=== PATIENT | female | born 1995 | race Caucasian/White ===

== ENCOUNTER 2022-02-08 09:44 | Outpatient (CLI) | payer OTHER, SELFPAY ==
[2022-02-08 12:01] LABS: Hematocrit 36.9 % (37.0-47.0); Hemoglobin 12.3 g/dL (12.0-15.0)
[2022-02-08 12:11] LABS: Glucose 1 Hour 86 mg/dL
[2022-02-08 12:52] LABS: HIV 1/2 Ab P24 Ag Result Negative (Negative)
[2022-02-08] MEDS: RHO(D) IMMUNE GLOBULIN 300 MCG/2 ML SYRINGE IM (16:10)
== END 2022-02-08 09:45 | disposition home or self-care (01) ==
LOC: ANHLAB 09:50
PROVIDERS: PCP Family Medicine; Visit Provider Obstetrics & Gynecology
DX: Z36.89 Encounter for other specified antenatal screening (principal); O36.0130 Maternal care for anti-D [Rh] antibodies, third trimester, not applicable or unspecified; Z3A.00 Weeks of gestation of pregnancy not specified
CPT/HCPCS: 36415; 85014; 85018; 85461; 86703; 86850; 86900; 86901; 90384; 96372; G0432; J2790

== ENCOUNTER 2022-03-31 09:52 | Emergency (ER) | payer OTHER, SELFPAY ==
[2022-03-31 10:19] VITALS: BP 123/89; PULSE 96; RESP 18; O2SAT 99
--- NOTE | 2022-03-31 12:27 | ED.EPISTAXIS ---
HPI - Epistaxis General Chief complaint: Epistaxis Stated complaint: nose bleed for 10 minutes Time Seen by Provider: 03/31/22 10:19 Source: patient Mode of arrival: ambulatory Limitations: no limitations History of Present Illness HPI Narrative: Patient is a 26-year-old female who presents to the ED with report of epistaxis. Patient reports she had 2 brief epistaxes, mostly from her right nare yesterday. These resolved with holding pressure to nose after a few minutes. Patient developed another epistaxis today, seem to be coming from both of her nares. She states she had approximately 30 minutes of bleeding today before she decided to come to the ED. She does note she has been coughing up clots. She denies any recent cold symptoms, trauma to nose. Denies dizziness, lightheadedness, passing out. Patient is currently 8 months [address] MATCHER [address] Dr. De. Patient denies any abdominal pain, vaginal bleeding, leakage of fluid. She was started on aspirin by her MATCHER recently after being diagnosed with COVID. She is not on any other blood thinners. Related Data Allergies Allergy/AdvReac Type Severity Reaction Status Date / Time No Known Allergies Allergy Verified 03/31/22 10:22 Review of Systems Review of Systems: CONSTITUTIONAL: Denies fever, chills, or sweats. ENT: See HPI CARDIOVASCULAR: Denies chest pain, palpitations, or edema. RESPIRATORY: Denies cough or dyspnea. GASTROINTESTINAL: Denies abdominal pain, nausea, vomiting, or diarrhea. GENITOURINARY: Denies vaginal bleeding, leakage of fluid, dysuria or hematuria. NEUROLOGICAL: Denies lightheadedness/dizziness, syncope, weakness. All systems reviewed & are unremarkable except as noted in HPI and below PMFSH Past Medical History Medical History (Updated 03/31/22 @ 13:52 by Madeline Gonzalez PA-C) No pertinent past medical history Surgical History Surgical History (Updated 03/31/22 @ 13:52 by Madeline Gonzalez PA-C) No pertinent past surgical history Social History Social History (Updated 03/31/22 @ 13:53 by Madeline Gonzalez PA-C) Smoking status: Never smoker Exam Narrative: GENERAL: Well appearing, well-nourished, non-toxic, in no acute distress. HEAD: Normocephalic, atraumatic. ENT: Dried blood around bilateral nares, R>L. No signs of active bleeding to Kiesselbach plexus. No septal hematoma. Minimal blood draining down posterior pharynx. NECK: Supple. No adenopathy, no masses. RESPIRATORY: Airway patent, respirations nonlabored. Clear to auscultation bilaterally, no rales, rhonchi, wheezing. CARDIOVASCULAR: Regular rate and rhythm without murmurs, rubs, or gallops. Radial pulses 2+ and equal bilaterally. ABDOMINAL: Soft, uterus gravid, nontender, nondistended, no hepatosplenomegaly. Normoactive BS. MUSCULOSKELETAL: Moves all extremities. Strength/ROM intact without gross deformities. SKIN: Warm, dry, normal color. No rashes. NEURO: A&O X3. Speech clear. Cranial nerves II-XII grossly intact. Steady gait. No ataxic movements. PSYCHIATRIC: Appropriate mood and affect. Normal interaction. Course Vital Signs Vital signs: Vital Signs Pulse Rate 96 03/31/22 10:19 Respiratory Rate 18 03/31/22 10:19 Blood Pressure 123/89 03/31/22 10:19 Pulse Oximetry 99 03/31/22 10:19 Oxygen Delivery Room Air 03/31/22 10:19 Temperature 98 F 03/31/22 12:45 Pulse Rate 80 03/31/22 12:45 Respiratory Rate 18 03/31/22 12:45 Blood Pressure 128/87 03/31/22 12:45 Pulse Oximetry 99 03/31/22 12:45 Oxygen Delivery Room Air 03/31/22 10:19 MDM - Epistaxis MDM Narrative Medical decision making narrative: Patient's epistaxis resolved with nasal clamping in the ED. Likely anterior epistaxis, patient coughing up some clots, but appears to be draining from nose. No significant or profuse bleeding down pharynx to suggest posterior bleed. Vitals have remained stable. I did contact [facility] and spoke with Dr. Quarles
[2022-03-31 12:45] VITALS: BP 128/87; PULSE 80; RESP 18; TEMP 36.6; O2SAT 99
== END 2022-03-31 12:50 | disposition home or self-care (01) ==
PROVIDERS: Emergency Provider Physician Assistant; PCP Family Medicine
DX: R04.0 Epistaxis (principal)
CPT/HCPCS: 99283

== ENCOUNTER 2022-05-03 16:50 | Inpatient (IN) | payer OTHER, SELFPAY ==
[2022-05-03] VITALS (88 sets, daily range): BP systolic 89–148; BP diastolic 63–97; PULSE 64–197; RESP 14–16; TEMP 36.3–37.2; O2SAT 94–100; BMI 23.4
[2022-05-03 17:38] LABS: Basophils Absolute Auto 0.1 K/mm3 (0.0-0.1); Basophils Percent Auto 0.6 % (0.2-1.2); Eosinophils Absolute Auto 0.1 K/mm3 (0-0.3); Eosinophils Percent Auto 1.1 % (0-4.4); Hematocrit 36.5 % (37.0-47.0); Immature Granulocyte Absolute 0.03 K/mm3 (0.00-0.031); Immature Granulocyte Percent A 0.3 % (0-0.5); Lymphocytes Absolute Auto 2.63 K/mm3 (0.9-3.2); Lymphocytes Percent Auto 24.8 % (18.3-44.2); Mean Corpuscular HGB Conc 32.9 g/dl (32-36); Mean Corpuscular Hemoglobin 29.6 pg (26-34); Mean Corpuscular Volume 89.9 fl (80-100); Mean Platelet Volume 12.8 fl (7.4-10.4); Monocytes Absolute Auto 0.7 K/mm3 (0.1-0.6); Monocytes Percent Auto 6.6 % (2.6-8.5); Neutrophils Absolute Auto 7.1 K/mm3 (1.3-6.7); Neutrophils Percent Auto 66.6 % (45.5-73.1); Platelet Count Result 201 k/mm3 (150-375); Red Blood Count 4.06 M/mm3 (4.2-5.4); Red Cell Distribution Width 13.4 % (11.5-14.5); White Blood Count 10.6 K/mm3 (4.5-10.0)
[2022-05-03] MEDS: LACTATED RINGERS 1,000 ML 125 ML IV CONT ×2 (17:46→21:05)
[2022-05-03] MEDS: OXYTOCIN 30 UNITS/NS 500 ML 30 UNITS/500 ML BAG IV CONT (17:47)
--- NOTE | 2022-05-03 18:03 | PM.IMHP ---
H&P: HPI History of Present Illness Date/Time: 05/03/22 18:03 Chief Complaint: induction of labor Narrative: Kristin is a 26yo G1 at 40.0 for IOL. complicated by COVID, stopped taking ASA due to severe nosebleeds, and anxiety. GBS neg. Review of Systems Review of Systems: All systems reviewed & are unremarkable except as noted in HPI and below PMFSH Past Medical History Medical History (Updated 05/03/22 @ 18:04 by Kristin De MD) No pertinent past medical history Surgical History Surgical History (Updated 03/31/22 @ 13:52 by Madeline Gonzalez PA-C) No pertinent past surgical history Family History Family History (Updated 04/05/22 @ 14:31 by Tamara Gonsalez RN) Grandparent Heart attack Father Heart attack Grandparent Breast cancer Social History Social History (Updated 03/31/22 @ 13:53 by Madeline Gonzalez PA-C) Smoking status: Never smoker Substance use: former Lack of Transportation: No Lack of Food: Never True Current Housing: I Have Housing Concerned About Future Housing: No Difficulty Paying Gas/Electric Bills: No Difficulty Paying for Meds: No Currently Unemployed: No Education: Bachelor's Degree Difficulty w/ Childcare or Family Care: No Spiritual care concerns: No Meds Home Medications and Allergies Home Medications Medication Instructions Recorded Confirmed Type vits no.126-ferrous fum 1 tablet PO DAILY 04/05/22 04/05/22 History 28 mg iron-folic acid 800 mcg tablet (Classic ) Allergies Allergy/AdvReac Type Severity Reaction Status Date / Time No Known Allergies Allergy Verified 04/05/22 14:27 Vital Signs Vital Signs - 24 hr 05/03/22 17:15 05/03/22 17:30 05/03/22 17:45 Pulse Rate 94 100 91 Blood Pressure 137/88 143/90 H 133/93 H 05/03/22 18:00 Pulse Rate 87 Blood Pressure 148/97 H Exam Const: General: no acute distress Resp: Effort & Inspection: normal respiratory effort Auscultation: clear to auscultation bilaterally Cardio: Rate: regular rate Rhythm: regular rhythm GI: GI Palp: Yes Soft to palpation Extrem: General: normal to inspection H&P: Results Labs Labs: Short CBC 05/03/22 Range/Units 17:12 WBC 10.6 H (4.5-10.0) K/mm3 Hgb 12.0 (12.0-15.0) g/dL Hct 36.5 L (37.0-47.0) % Plt Count 201 (150-375) k/mm3 Assessment and Plan Assessment and plan (1) Elective induction of labor planned: Status: Acute Plan FHT category 1 GBS neg pitocin AROM clear 1.5/80/-2 BPs mildly elevated- pt anxious. If do not resolve in an hour will send PI labs. denies PreE sx.
[2022-05-03] MEDS: fentaNYL CITRATE INJ (*CRX) 100 MCG/2 ML VIAL 50 MCG IV PUSH (18:58)
[2022-05-03] MEDS: fentaNYL CITRATE INJ (*CRX) 100 MCG/2 ML VIAL IV PUSH (20:03)
--- NOTE | 2022-05-03 20:56 | WPDANESEPP ---
Anes - Eval Pre Procedure Procedure: labor epidural Date/Time: 05/03/22 20:56 Surgeon: goldy Preop Diagnosis: pain during labor Pre Op Diagnosis: Induction of Labor Patient Data Age: 26 Gender: F Height: 1.65 m Weight: 64 kg Last Vital Signs Temp 37.2 C 05/03/22 18:30 Pulse 73 05/03/22 20:45 Resp 16 05/03/22 18:30 BP 134/93 H 05/03/22 20:45 Pulse Ox 100 05/03/22 20:53 O2 Del Method Room Air 05/03/22 18:30 Allergies Allergy/AdvReac Type Severity Reaction Status Date / Time No Known Allergies Allergy Verified 04/05/22 14:27 Home Medications Medication Instructions Recorded Confirmed Type vits no.126-ferrous fum 1 tablet PO DAILY 04/05/22 04/05/22 History 28 mg iron-folic acid 800 mcg tablet (Classic ) Laboratory Tests 05/03/22 05/03/22 05/03/22 17:12 17:12 17:12 WBC 10.6 K/mm3 H K/mm3 (4.5-10.0) RBC 4.06 M/mm3 L M/mm3 (4.2-5.4) Hgb 12.0 g/dL g/dL (12.0-15.0) Hct 36.5 % L % (37.0-47.0) MCV 89.9 fl fl (80-100) MCH 29.6 pg pg (26-34) MCHC 32.9 g/dl g/dl (32-36) RDW 13.4 % % (11.5-14.5) Plt Count 201 k/mm3 k/mm3 (150-375) MPV 12.8 fl H fl (7.4-10.4) Immature Gran % (Auto) 0.3 % % (0-0.5) Neut % (Auto) 66.6 % % (45.5-73.1) Lymph % (Auto) 24.8 % % (18.3-44.2) [place] % (Auto) 6.6 % % (2.6-8.5) Eos % (Auto) 1.1 % % (0-4.4) Baso % (Auto) 0.6 % % (0.2-1.2) Lymph # (Auto) 2.63 K/mm3 K/mm3 (0.9-3.2) [place] # (Auto) 0.7 K/mm3 H K/mm3 (0.1-0.6) Eos # (Auto) 0.1 K/mm3 K/mm3 (0-0.3) Baso # (Auto) 0.1 K/mm3 K/mm3 (0.0-0.1) Abs Immat Gran (auto) 0.03 K/mm3 K/mm3 (0.00-0.031) Absolute Neuts (auto) 7.1 K/mm3 H K/mm3 (1.3-6.7) Absolute Nucleated RBC 0.0 K/mm3 K/mm3 (0.0-0.012) Nucleated RBC % 0.0 % % (0.0-0.2) RPR Pending Blood Type B Negative Antibody Screen Negative Patient hx anesthesia problems: none Family hx anesthesia problems: none Results Review: All pre-operative results and documents have been reviewed as part of the pre-operative evaluation. [facility] Past Medical History Medical History (Updated 05/03/22 @ 20:57 by Lluvia Severino CRNA) Intrauterine No pertinent past medical history Surgical History Surgical History (Updated 03/31/22 @ 13:52 by Madeline Gonzalez PA-C) No pertinent past surgical history Family History Family History (Updated 04/05/22 @ 14:31 by Tamara Gonsalez RN) Grandparent Heart attack Father Heart attack Grandparent Breast cancer Social History Social History (Updated 03/31/22 @ 13:53 by Madeline Gonzalez PA-C) Smoking status: Never smoker Substance use: former Lack of Transportation: No Lack of Food: Never True Current Housing: I Have Housing Concerned About Future Housing: No Difficulty Paying Gas/Electric Bills: No Difficulty Paying for Meds: No Currently Unemployed: No Education: Bachelor's Degree Difficulty w/ Childcare or Family Care: No Spiritual care concerns: No Exam Day of Procedure 05/03/22 20:56
[2022-05-03] MEDS: SODIUM CHLORIDE 0.9% IV 300 ML 600 ML I-UTERINE (22:30)
[2022-05-04] VITALS (50 sets, daily range): BP systolic 107–141; BP diastolic 59–94; PULSE 69–191; RESP 16–18; TEMP 36.4–37.4; O2SAT 95–100
[2022-05-04] MEDS: LACTATED RINGERS 1,000 ML 125 ML IV CONT (00:05)
--- NOTE | 2022-05-04 02:41 | PM.OBPRVD ---
OB - Delivery Note Procedure Delivery date: 05/04/22 Procedure: Events: Elective Induction of Labor Induction method: AROM and Per Pitocin Protocol Delivery monitor: External FHT and Internal Uterine Route of delivery: Laceration Description: Vaginal (left) Delivery repair: vicryl Quantitative Blood Loss (ml): 280 Anesthesia type: Epidural Disposition: Floor Narrative: With adequate expulsive efforts by the mother, the baby's head was delivered OA. The baby's anterior shoulder was delivered under the pubic symphysis without difficulty. The posterior shoulder and the rest of the baby delivered without difficulty. The was placed on the mothers chest and suctioned and stimulated. The cord was clamped and cut after 30 seconds. Mother and baby both stable. Baby Date of : 05/04/22 Time of : 02:13 Weeks of gestation at delivery: 40 Infant gender: Female Weight (pounds): 6 Weight (ounces): 1 presentation: vertex Placenta delivery description: Spontaneous Cord Vessel Description: 3 Vessels and Delayed Cord Clamping score one minute: 8 score five minutes: 9
[2022-05-04] MEDS: OXYTOCIN 30 UNITS/NS 500 ML 30 UNITS/500 ML BAG 125 UNITS IV CONT (02:57)
--- NOTE | 2022-05-04 04:51 | PC.NURSE ---
Patient transferred to post room #291 via wheel chair. Support person present. Oriented to unit, room, information board, rooming in, admission packet and security measures. Patient verbalizes understanding.
[2022-05-04 06:35] LABS: Rapid Plasma Reagin Non-Reactive (NonReactive)
[2022-05-04] MEDS: IBUPROFEN 600 MG TABLET PO ×2 (07:32→23:00)
[2022-05-04] MEDS: DOCUSATE SODIUM 100 MG CAPSULE PO (07:33)
[2022-05-05 05:12] LABS: Hematocrit 29.8 % (37.0-47.0); Hemoglobin 9.5 g/dL (12.0-15.0)
--- NOTE | 2022-05-05 07:12 | P.PNOB_ITS ---
OB - PN: Subj Subjective Date/time seen: 05/05/22 07:12 Patient comments: no complaints and pain well controlled baby status: doing well and bottle feeding well [place] feeding status: exclusively bottle feeding Narrative: would like DC home today. OB - PN: Obj Data Labs 05/05/22 03:17 Labs: Laboratory Results - last 24 hr 05/05/22 03:17 Hgb 9.5 L Hct 29.8 L OB - PN A/P Plan day: 1 Plan: routine care and discharge home Comments: DC home. DC instructions given. Time Spent With Patient Time: Total time spent is greater than 50% in coordination of care (as documented) at patient's floor/unit and/or counseling patient: Time with patient: less than 15 minutes Exam Narrative: NAD abdomen soft, nontender, fundus firm below the umbilicus Extremities nontender, 1+ edema
--- NOTE | 2022-05-05 07:14 | PM.OBDSVD ---
DS: Admitting Diagnosis Discharge Date 05/05/22 Admitting Diagnosis elective IOL at term DS: Discharge Diagnosis Discharge Diagnosis (1) , delivered: Code(s): O80 - Encounter for full-term uncomplicated delivery Status: Acute OB - DS: Summary Hospital Course Hospital Course: Kristin was admitted for elective induction of labor at 40 weeks. She proceeded to have an uncomplicated vaginal delivery and course. She was discharged home on day 1. OB Procedures : Ultrasound OB Procedures Intrapartum: Spontaneous Vag Delivery OB Procedures: : None Peripartum Data Delivery Method: Natural Vaginal complications: none Status at Discharge Functional status at discharge: independent ambulation Time Spent with Patient Time attestation: Total time spent providing and/or coordinating discharge services: Exam Narrative: NAD abdomen soft, appropriately tender Ext non tender, 1+ edema DS: Data Data Completed and Pending Labs on day of discharge: Labs from last 24 hours 05/05/22 03:17 Hgb 9.5 L Hct 29.8 L Discharge Plan Discharge Attending physician on discharge: Kristin De Discharging Clinician: Kristin De Anticipated Discharge Date/Time: 05/05/22 07:13 Patient Disposition: Home, Self-Care Activity: pelvic rest Diet: regular Patient Instructions: Antibiotic Form Stand Alone Forms: General Discharge Information Follow-up/Referrals: Kristin De MD [Physician] - 4 Weeks Discharge Medications: Continued Classic 28 mg iron- 800 mcg Tablet 1 tablet PO DAILY Date of admission: 05/03/22 16:50 Primary Care Provider: CucaAmauri Admitting Provider: Kristin De Attending physician on admission: Kristin De Condition: Stable
[2022-05-05 07:30] VITALS: BP 127/88; PULSE 73; RESP 18; TEMP 37.2; O2SAT 100
[2022-05-05] MEDS: DOCUSATE SODIUM 100 MG CAPSULE PO (08:10)
[2022-05-05] MEDS: POLYSACCHARIDE IRON COMPLEX 150 MG CAPSULE PO (08:10)
--- NOTE | 2022-05-05 10:23 | WPDANLDPN2 ---
Anes-Prog Note L&D Date/Time: 05/05/22 10:23 Comfortable throughout: labor and delivery Neuraxial method: epidural Epidural/Spinal procedure site: clean & non-tender Neuro status: Neuro function grossly intact. Cardiovascular status: normal Respiratory status: normal Airway patency: baseline Mental status: baseline Post-Op hydration status: normal Vital Signs: Last Vital Signs Temp 37.2 C 05/05/22 07:30 Pulse 73 05/05/22 07:30 Resp 18 05/05/22 07:30 BP 127/88 05/05/22 07:30 Pulse Ox 100 05/05/22 07:30 O2 Del Method Room Air 05/05/22 08:10 Pain score (VAS): 0 I/O: Intake & Output 05/04/22 05/05/22 05/05/22 23:59 07:59 15:59 Intake Total 500 Balance 500 Post-procedural complaints: none Patient feedback: Patient satisfied with anesthetic care.
--- NOTE | 2022-05-05 15:35 | PC.NURSE ---
0900 Patient viewed the discharge video Mother & Baby Care, The First Two Weeks . Patient was given the opportunity and encouraged to ask questions. Patient verbalized understanding of information shared and has been given the mother/baby guide for home reference.
[2022-05-06 10:29] VITALS: BP 125/79; PULSE 99; RESP 20; TEMP 36.4; O2SAT 99
== END 2022-05-05 14:00 | disposition home or self-care (01) | DRG 807 ==
LOC: ANHLDR 16:53 → ANHOB2 05-04 04:55
PROVIDERS: Admitting Provider Obstetrics & Gynecology; PCP Family Medicine; Visit Provider Obstetrics & Gynecology
DX: O70.0 First degree perineal laceration during delivery (principal); Z37.0 Single live birth; Z3A.40 40 weeks gestation of pregnancy; Z86.16 Personal history of COVID-19
CPT/HCPCS: 36415; 85014; 85018; 85025; 86592; 86850; 86900; 86901; A9270; J2590; J2795; J3010; J7030; J7120

== ENCOUNTER 2023-01-25 12:13 | Outpatient (CLI) | payer OTHER, SELFPAY ==
[2023-01-25 13:38] LABS: Hematocrit 37.5 % (37.0-47.0); Hemoglobin 12.2 g/dL (12.0-15.0)
[2023-01-25 13:48] LABS: Glucose 1 Hour PP 50gm Dose 90 mg/dL
[2023-01-25 14:30] LABS: HIV 1/2 Ab P24 Ag Result Negative (Negative)
[2023-01-26] MEDS: RHO(D) IMMUNE GLOBULIN 300 MCG/2 ML SYRINGE IM (15:05)
== END 2023-01-25 12:14 | disposition home or self-care (01) ==
LOC: ANHLAB 12:14
PROVIDERS: PCP Family Medicine; Visit Provider Obstetrics & Gynecology
DX: Z36.89 Encounter for other specified antenatal screening (principal); O36.0130 Maternal care for anti-D [Rh] antibodies, third trimester, not applicable or unspecified
CPT/HCPCS: 36415; 82947; 85014; 85018; 85461; 86703; 86850; 86900; 86901; 90384; 96372; G0432; J2790

== ENCOUNTER 2023-04-07 00:01 | Inpatient (IN) | payer OTHER, SELFPAY ==
[2023-04-07] VITALS (62 sets, daily range): BP systolic 66–149; BP diastolic 40–118; PULSE 70–157; RESP 16–18; TEMP 36.2–37.2; O2SAT 97–100; BMI 26.6
[2023-04-07 00:31] LABS: Basophils Absolute Auto 0.1 K/mm3 (0.0-0.1); Basophils Percent Auto 0.5 % (0.2-1.2); Eosinophils Absolute Auto 0.1 K/mm3 (0-0.3); Eosinophils Percent Auto 0.9 % (0-4.4); Hematocrit 38.7 % (37.0-47.0); Hemoglobin 12.5 g/dL (12.0-15.0); Immature Granulocyte Percent A 1.9 % (0-0.5); Lymphocytes Absolute Auto 2.23 K/mm3 (0.9-3.2); Mean Corpuscular HGB Conc 32.3 g/dl (32-36); Mean Corpuscular Hemoglobin 28.5 pg (26-34); Mean Corpuscular Volume 88.4 fl (80-100); Mean Platelet Volume 11.6 fl (7.4-10.4); Monocytes Absolute Auto 0.8 K/mm3 (0.1-0.6); Monocytes Percent Auto 7.9 % (2.6-8.5); Neutrophils Absolute Auto 7.2 K/mm3 (1.3-6.7); Neutrophils Percent Auto 67.8 % (45.5-73.1); Platelet Count Result 166 k/mm3 (150-375); Red Blood Count 4.38 M/mm3 (4.2-5.4); Red Cell Distribution Width 14.4 % (11.5-14.5); White Blood Count 10.6 K/mm3 (4.5-10.0)
[2023-04-07] MEDS: miSOPROStol 25 MCG TABLET 50 MCG PO (01:19)
--- NOTE | 2023-04-07 05:25 | WPDOBADMIT ---
Obstetrics - Admit Note Admission Note: record reviewed. No pertinent additions to the history and/or any subsequent changes in the physical findings that are not consistent with the expected course of the were found. Additions to the history and/or subsequent changes in the physical findings follow. IOL, SVE 3/80/-2 AROM moderate amount of clear, odorless fluid, anticipate vaginal delivery
[2023-04-07] MEDS: LACTATED RINGERS 1,000 ML 125 ML IV CONT (06:25)
--- NOTE | 2023-04-07 06:37 | WPDANESEPP ---
Anes - Eval Pre Procedure Procedure: labor epidural Date/Time: 04/07/23 06:37 Pre Op Diagnosis: IOL Patient Data Age: 27 Gender: F Height: 1.68 m Weight: 75 kg Last Vital Signs Temp 36.5 C 04/07/23 05:59 Pulse 94 04/07/23 06:36 BP 131/95 H 04/07/23 06:36 Pulse Ox 98 04/07/23 06:35 Allergies Allergy/AdvReac Type Severity Reaction Status Date / Time No Known Allergies Allergy Verified 04/05/22 14:27 Home Medications Medication Instructions Recorded Confirmed Type vits no.126-ferrous fum 1 tablet PO DAILY 04/05/22 04/07/23 History 28 mg iron-folic acid 800 mcg tablet (Classic ) Laboratory Tests 04/07/23 00:25 WBC 10.6 H K/mm3 (4.5-10.0) RBC 4.38 M/mm3 (4.2-5.4) Hgb 12.5 g/dL (12.0-15.0) Hct 38.7 % (37.0-47.0) MCV 88.4 fl (80-100) MCH 28.5 pg (26-34) MCHC 32.3 g/dl (32-36) RDW 14.4 % (11.5-14.5) Plt Count 166 k/mm3 (150-375) MPV 11.6 H fl (7.4-10.4) Immature Gran % (Auto) 1.9 H % (0-0.5) Neut % (Auto) 67.8 % (45.5-73.1) Lymph % (Auto) 21.0 % (18.3-44.2) [place] % (Auto) 7.9 % (2.6-8.5) Eos % (Auto) 0.9 % (0-4.4) Baso % (Auto) 0.5 % (0.2-1.2) Lymph # (Auto) 2.23 K/mm3 (0.9-3.2) [place] # (Auto) 0.8 H K/mm3 (0.1-0.6) Eos # (Auto) 0.1 K/mm3 (0-0.3) Baso # (Auto) 0.1 K/mm3 (0.0-0.1) Abs Immat Gran (auto) 0.20 H K/mm3 (0.00-0.031) Absolute Neuts (auto) 7.2 H K/mm3 (1.3-6.7) Absolute Nucleated RBC 0.0 K/mm3 (0.0-0.012) Nucleated RBC % 0.0 % (0.0-0.2) RPR Pending Blood Type B Negative Antibody Screen Positive Antibody Identification Passive Due to RH Imm Glob Antigen Identification Cancelled JUNI, IgG Interpret Not Performed JUNI, Poly Interpret Neg JUNI, Complement Interp Not Performed Patient hx anesthesia problems: none Family hx anesthesia problems: none Results Review: All pre-operative results and documents have been reviewed as part of the pre-operative evaluation. [facility] Past Medical History Medical History Intrauterine No pertinent past medical history Surgical History Surgical History No pertinent past surgical history Family History Family History Grandparent Heart attack Father Heart attack Grandparent Breast cancer Social History Social History Smoking status: Never smoker Second hand tobacco smoke exposure: No Substance use: never Do You Feel Safe in your Home?: Yes Lack of Transportation: YES Lack of Food: Never True Current Housing: I Have Housing Concerned About Future Housing: No Difficulty Paying Gas/Electric Bills: No Difficulty Paying for Meds: No Currently Unemployed: No Education: Bachelor's Degree Difficulty w/ Childcare or Family Care: No Spiritual care concerns: No Exam Day of Procedure 04/07/23 06:37 Patient weight: normal Heart: regular rate and rhythm Lungs: normal air movement Airway: Mallampati scale Neurological: alert and oriented
[2023-04-07] MEDS: LACTATED RINGERS 1,000 ML 999 ML IV CONT (06:59)
[2023-04-07] MEDS: ONDANSETRON INJ 4 MG/2 ML VIAL IV PUSH (08:12)
[2023-04-07] MEDS: OXYTOCIN 30 UNITS/NS 500 ML 30 UNITS/500 ML BAG 999 UNITS IV CONT (08:51)
--- NOTE | 2023-04-07 09:04 | P.PCNOB_ITS ---
OB - Vaginal Delivery Note Procedure Delivery date: 04/07/23 Events: Elective Induction of Labor Induction method: Per Misoprostol Protocol Delivery augmentation: Rupture of Membranes and Pitocin Delivery monitor: External FHT and External Uterine Route of delivery: Episiotomy description: None Laceration Description: Perineal - 2nd Degree Delivery repair: vicryl Specimen: No Quantitative Blood Loss (ml): 100 Anesthesia type: Epidural Disposition: Floor Complications: No immediate complications Narrative: See H&P and notes for details on patient's admission and labor. She progressed to complete cervical dilation and at the appropriate time began pushing. With adequate expulsive efforts by the mother, the baby's head was delivered without difficulty. Nuchal cord was present x1 and easily reduced. The baby's left shoulder was anterior and delivered under the pubic symphysis without difficulty. The posterior shoulder and the rest of the baby delivered without difficulty. The umbilical cord was doubly clamped and cut after 60 seconds of delayed cord clamping. Care of the was then assumed by the nursing staff. Mother and infant are at this time in stable condition and doing well. [place] Baby Date of : 04/07/23 Weeks of gestation at delivery: 39 gender: Male presentation: vertex position: Left Occiput Anterior Placenta delivery description: Expressed
[2023-04-07] MEDS: OXYTOCIN 30 UNITS/NS 500 ML 30 UNITS/500 ML BAG 125 UNITS IV CONT (09:23)
[2023-04-07 10:36] LABS: Rapid Plasma Reagin Non-Reactive (NonReactive)
[2023-04-07] MEDS: WITCH HAZEL 40 PADS 1 PAD TOPICAL ×2 (10:46→15:47)
[2023-04-07] MEDS: BENZOCAINE 20% AER SPR (*SP) 56 GM CAN 1 SPRAY TOPICAL (10:46)
[2023-04-07] MEDS: ACETAMINOPHEN 325 MG TABLET 650 MG PO ×2 (11:25→23:18)
[2023-04-07] MEDS: IBUPROFEN 600 MG TABLET PO (17:34)
[2023-04-07] MEDS: DOCUSATE SODIUM 100 MG CAPSULE PO (17:34)
[2023-04-08 04:00] VITALS: BP 112/80; PULSE 66; RESP 18; TEMP 36.8; O2SAT 99
[2023-04-08 05:03] LABS: Hematocrit 35.2 % (37.0-47.0); Hemoglobin 11.2 g/dL (12.0-15.0)
[2023-04-08] MEDS: IBUPROFEN 600 MG TABLET PO (07:38)
--- NOTE | 2023-04-08 08:11 | WPDANLDPN2 ---
Anes-Prog Note L&D Date/Time: 04/08/23 08:11 Neuro status: Neuro function grossly intact. Vital Signs: Last Vital Signs Temp 36.8 C 04/08/23 04:00 Pulse 66 04/08/23 04:00 Resp 18 04/08/23 04:00 BP 112/80 04/08/23 04:00 Pulse Ox 99 04/08/23 04:00 O2 Del Method Room Air 04/07/23 11:10 Pain score (VAS): 0 Patient feedback: Patient satisfied with anesthetic care.
[2023-04-08 08:34] VITALS: BP 115/76; PULSE 73; RESP 20; TEMP 36.4; O2SAT 99
--- NOTE | 2023-04-08 09:13 | PM.OBPNVD ---
OB - PN: Subj Subjective Date/time seen: 04/08/23 09:13 Interval history: POD#1 Doing well, pain well controlled Bleeding stable Voiding without difficulty Ready for discharge today OB - PN: Obj Data Labs 04/08/23 04:31 Labs: Laboratory Results - last 24 hr 04/07/23 04/08/23 00:25 04:31 Hgb 11.2 L Hct 35.2 L RPR Non-reactive OB - PN A/P Assessment and Plan (1) (spontaneous vaginal delivery): Code(s): O80 - Encounter for full-term uncomplicated delivery Status: Acute Plan day: 1 Plan: discharge home Time Spent With Patient Time: Total time spent is greater than 50% in coordination of care (as documented) at patient's floor/unit and/or counseling patient: Review of Systems Review of Systems: All systems reviewed & are unremarkable except as noted in HPI and below Exam Const: General: comfortable and no acute distress Resp: Effort & Inspection: normal respiratory effort
--- NOTE | 2023-04-08 09:17 | PM.OBDSVD ---
DS: Admitting Diagnosis Discharge Date 04/08/23 Admitting Diagnosis Elective induction of labor DS: Discharge Diagnosis Discharge Diagnosis (1) (spontaneous vaginal delivery): Code(s): O80 - Encounter for full-term uncomplicated delivery Status: Acute OB - DS: Summary OB Procedures : None OB Procedures Intrapartum: Spontaneous Vag Delivery OB Procedures: : None Peripartum Data Laceration Description: Perineal - 2nd Degree Episiotomy description: None Time Spent with Patient Time attestation: Total time spent providing and/or coordinating discharge services: DS: Data Data Completed and Pending Labs on day of discharge: Labs from last 24 hours 04/08/23 04/07/23 04:31 00:25 Hgb 11.2 L Hct 35.2 L RPR Non-reactive Discharge Plan Discharge Attending physician on discharge: Rocky Tay Discharging Clinician: Rocky Tay Patient Disposition: Home, Self-Care Activity: may shower and pelvic rest Diet: as tolerated Patient Instructions: Antibiotic Form Stand Alone Forms: General Discharge Information Follow-up/Referrals: Rocky Tay MD [Physician] - 4 Weeks Discharge Medications: Continued Classic 28 mg iron- 800 mcg Tablet 1 tablet PO DAILY Date of admission: 04/07/23 00:01 Primary Care Provider: NikoAmauri Admitting Provider: Rocky Tay Attending physician on admission: Rocky Tay Condition: Stable
--- NOTE | 2023-04-08 09:19 | PM.OBDSVD ---
DS: Admitting Diagnosis Discharge Date 04/08/23 Admitting Diagnosis EIL DS: Discharge Diagnosis Discharge Diagnosis (1) (spontaneous vaginal delivery): Code(s): O80 - Encounter for full-term uncomplicated delivery Status: Acute OB - DS: Summary OB Procedures : None OB Procedures Intrapartum: Spontaneous Vag Delivery OB Procedures: : None Peripartum Data Laceration Description: Perineal - 2nd Degree Episiotomy description: None Time Spent with Patient Time attestation: Total time spent providing and/or coordinating discharge services: DS: Data Data Completed and Pending Labs on day of discharge: Labs from last 24 hours 04/08/23 04/07/23 04:31 00:25 Hgb 11.2 L Hct 35.2 L RPR Non-reactive Discharge Plan Discharge Attending physician on discharge: Rocky Tay Discharging Clinician: Rocky Tay Patient Disposition: Home, Self-Care Activity: may shower and pelvic rest Diet: as tolerated Patient Instructions: Antibiotic Form Stand Alone Forms: General Discharge Information Follow-up/Referrals: Rocky Tay MD [Physician] - 4 Weeks Discharge Medications: Continued Classic 28 mg iron- 800 mcg Tablet 1 tablet PO DAILY Date of admission: 04/07/23 00:01 Primary Care Provider: CucaAmauri Admitting Provider: Rocky Tay Attending physician on admission: Rocky Tay Condition: Stable
[2023-04-09 14:48] VITALS: BP 123/71; PULSE 83; RESP 18; TEMP 36.8; O2SAT 99
== END 2023-04-08 12:00 | disposition home or self-care (01) | DRG 807 ==
LOC: ANHLDR 00:05 → ANHOB2 11:10
PROVIDERS: Admitting Provider Obstetrics & Gynecology; PCP Family Medicine; Visit Provider Obstetrics & Gynecology
DX: O69.81X0 Labor and delivery complicated by cord around neck, without compression, not applicable or unspecified (principal); Z37.0 Single live birth; O70.1 Second degree perineal laceration during delivery; Z3A.39 39 weeks gestation of pregnancy
CPT/HCPCS: 36415; 85014; 85018; 85025; 86592; 86850; 86880; 86900; 86901; A9270; J2405; J2590; J2795; J7120